=== PATIENT | female | born 1940 ===

== ENCOUNTER 2019-01-29 09:12 | Inpatient (IN) ==
[2019-01-29] MEDS ORDERED: SODIUM CHLORIDE 0.9% 1000ML 1,000 ML IV ONE (09:44)
[2019-01-29] MEDS ORDERED: NovoLIN-R INSULIN PER UNIT CHARGE IV STA ×2 (09:44→11:07)
--- NOTE | 2019-01-29 10:06 | XRay Report ---
SINGLE VIEW CHEST CLINICAL HISTORY: Generalized weakness. FINDINGS: An AP, portable, upright chest radiograph is compared to study dated 01/06/2019. The examinat ion is degraded by portable technique and patient rotation. The patient is status post midline sterno emely. The heart is top normal for projection, noting atherosclerotic calcification of the thoracic ao rta. The lungs and pleural spaces are clear. No pneumothorax is seen. The skeletal structures are ost eopenic. The bony thorax is grossly intact. Calcific tendinopathy is noted in the left shoulder. IMPRESSION: No active disease in the chest. Electronically signed by: Manuel Sheehan M.D. 01/29/2019 10:04 AM
[2019-01-29] MEDS ORDERED: ONDANSETRON INJ 2 MG/ML 2 ML VIAL IV STA (10:14)
[2019-01-29 10:26] LABS: Basophils # (auto) 0.03 K/uL (0-0.2); Basophils % (auto) 0.2 %; Eosinophils # (auto) 0.06 K/uL (0-0.5); Eosinophils % (auto) 0.4 %; Hematocrit (blood only) 36.5 % (37-47); Hemoglobin 12.4 g/dL (12.0-16.0); Immature Granulocytes # (auto) 0.03 K/uL (0.00-0.02); Immature Granulocytes % (auto) 0.2 %; Lymphocytes # (auto) 3.75 K/uL (1.2-3.4); Lymphocytes % (auto) 27.9 %; Mean Corpuscular Volume 83.9 fL (80-100); Mean Platelet Volume 10.6 fL (7.4-10.4); Monocytes # (auto) 0.79 K/uL (0.11-0.59); Monocytes % (auto) 5.9 %; Neutrophils # (auto) 8.78 K/uL (1.4-6.5); Neutrophils % (auto) 65.4 %; Platelet Count 303 K/uL (130-400); RDW Coefficient of Variation 13.5 % (11.5-14.5); RDW Standard Deviation 41.1 fL (36.4-46.3); Red Blood Count 4.35 M/uL (4.2-5.4); White Blood Count 13.44 K/uL (4.8-10.8)
[2019-01-29 10:37] LABS: Appearance Urine Turbid (Clear); Bacteria Urine Automated 3+ (Negative); Bilirubin Urine Negative (Negative); Blood Urine 1+ (Negative); Color Urine Yellow; Epithelial Cell Urine Auto >30 /lpf (0-5); Glucose Urine UA 3+ (Negative); Ketones Urine Negative (Negative); Leukocyte Esterase Urine 2+ (Negative); Nitrite Urine Negative (Negative); Protein Urine 2+ (Negative); RBC Urine Automated 0-4 /hpf (0-4); Specific Gravity Urine 1.028 (1.000-1.030); Urobilinogen Urine Negative (Negative); WBC Urine Automated >30 /hpf (0-5)
[2019-01-29 10:52] LABS: Alanine Aminotransferase 22 U/L (12-78); Albumin Globulin Ratio 0.7 (0.9-2); Albumin Level 3.6 gm/dl (3.4-5.0); Alkaline Phosphatase 90 U/L (45-117); Aspartate Aminotransferase 22 U/L (15-37); BUN Creatinine Ratio 32.3 (10-20); Bilirubin,Total 0.4 mg/dl (0.2-1); Blood Urea Nitrogen 69 mg/dl (7-18); Calcium 9.8 mg/dl (8.5-10.1); Carbon Dioxide 27 mmol/L (21-32); Chloride 95 mmol/L (98-107); Est GFR (African American) 25.1; Est GFR (Non-African American) 21.6; Globulin 5.2 gm/dl (2.5-4.0); Glucose 425 mg/dl (70-99); Magnesium 2.2 mg/dl (1.8-2.4); Sodium 133 mmol/L (136-145); Total Protein 8.8 gm/dl (6.4-8.2); Troponin I < 0.015 ng/ml (0-0.045)
[2019-01-29] MEDS ORDERED: cefTRIAXone SODIUM 1,000 MG/50 ML BAG IV STA (10:54)
[2019-01-29 11:02] LABS: Beta-Hydroxybutyrate 1.84 mg/dl (0.2-2.81)
[2019-01-29] MEDS ORDERED: SODIUM CHLORIDE 0.9% 1000ML 500 ML IV ONE (11:04)
[2019-01-29] MEDS ORDERED: INSULIN GLARGINE SOLOSTAR 100 UNITS/ML 3 ML PEN SC STA (12:04)
--- NOTE | 2019-01-29 12:18 | History & Physical Report ---
Date of Service January 29, 2019 Assessment & Plan (1) UTI (urinary tract infection): Continue Rocephin started in the ED. Await urine culture results and tailor antibiotics accordingly Present on Admission?: Yes (2) Uncontrolled type 2 diabetes mellitus: Resume Lantus twice daily dosing. IV fluids. ADA diet. Sliding scale coverage Present on Admission?: Yes (3) SYED (acute kidney injury): Administer IV fluids. Monitor intake and output. Serial lab studies Present on Admission?: Yes (4) Dementia: Provide supportive care. Haldol IM as needed agitation or aggressive behavior Present on Admission?: Yes (5) DVT prophylaxis: Heparin subcu History of Present Illness Chief Complaint: Elevated glucose, UTI, refusing medications, poor oral intake, weakness Primary Care Provider: Jaida Mcintosh 78-year-old female with dementia from a local detention who has been treated for UTI but also has diabetes and has been refusing her medications and insulin. Her oral intake is poor. She has developed weakness and was sent to the ED for evaluation. She has volume depletion with acute kidney injury and glucose greater than 500. She is not in DKA however. She has been given insulin and IV fluids and is hemodynamically stable at this time. She is alert but disoriented due to her dementia. She is in no acute distress. Caretakers are present and stated that she is a full code. She is under the care of [facility]. She is being admitted for further evaluation and treatment. Allergies Allergy/AdvReac Type Severity Reaction Status Date / Time acetaminophen [From Tylenol] AdvReac Intermediate Nose Bleed Unverified 01/29/19 10:59 Cephalosporins AdvReac Intermediate Unknown Unverified 01/29/19 10:59 iodine AdvReac Intermediate Unknown Unverified 01/29/19 10:59 levofloxacin [From Levaquin] AdvReac Intermediate Unknown Unverified 01/29/19 10:59 Penicillins AdvReac Intermediate Unknown Unverified 01/29/19 10:59 lactose AdvReac Unknown Unknown Unverified 01/29/19 10:59 seafood AdvReac Intermediate Unknown Uncoded 01/29/19 10:59 Home Medications Home Medications Medication Instructions Recorded Confirmed Type donepezil 5 mg PO HS 01/06/19 01/29/19 History glipizide 10 mg PO QAM 01/06/19 01/29/19 History insulin aspart U-100 [Novolog 16 unit SUBCUT UD 01/06/19 01/29/19 History U-100 Insulin aspart] insulin glargine [Lantus U-100 20 unit SUBCUT BID 01/06/19 01/29/19 History Insulin] metformin 500 mg PO BIDM 01/06/19 01/29/19 History metoprolol tartrate 25 mg PO QAM 01/06/19 01/29/19 History simvastatin 20 mg PO HS 01/06/19 01/29/19 History cefdinir 300 mg PO QAM 01/29/19 01/29/19 History Past Med/Surg History Medical History Dementia (Chronic) Uncontrolled type 2 diabetes mellitus (Acute) SYED (acute kidney injury) (Acute) UTI (urinary tract infection) (Acute) Dementia Alzheimer disease (Chronic) Diabetes (Chronic) Social History Feels Safe at Home: Yes Smoking Status: Former smoker Review of Systems Review of Systems: Constitutional-no fever or chills ENT-no blurred vision, no double vision, no epistaxis, no sore throat Respiratory-no cough, no wheezing, no shortness of breath Cardiac-no palpitations, no chest pain, no syncope GI-no nausea, vomiting, diarrhea, melena, hematochezia -no urinary retention, no urinary incontinence, no dysuria, no hematuria Musculoskeletal-no joint pain, no muscle tenderness Skin-no bruising, no rashes, no pruritus Neuro-no isolated weakness, no paresthesia, no weakness Psych-no depression, no anxiety Physical Exam Physical Exam: General-alert and oriented x3, no fevers, no chills HEENT-head atraumatic and normocephalic, TMs intact bilaterally, pupils equal and reactive to light, extraocular muscles intact. Dry oral mucosa noted Neck-no lymphadenopathy or thyromegaly, trachea midline Chest-clear to auscultation percussion. No rales wheezing or rhonchi Cardiac-regular rate and rhythm, normal S1 and S2, no JVD Abdomen-normal bowel sounds, nontender, no hepatosplenomegaly Extremities-no cyanosis, clubbing, or edema Neuro-cranial nerves II through XII intact, motor and sensory function within normal limits, strength symmetrical , no focal deficits Psych-baseline dementia. Oriented to name only Results & Data Vital Signs (Past 12 Hours) Vital Signs Temp Pulse Pulse Resp BP BP Pulse Ox 01/29/19 11:21 76 19 137/55 L 95 01/29/19 09:44 97 01/29/19 09:32 36.9 C 83 20 126/79 95 Laboratory Results 01/29/19 10:15 01/29/19 10:15 PG Care Time/CCT Total # of Minutes Spent Total Time Spent with Patient: Total time spent is greater than 50% in coordination of care (as documented) at patient's floor/unit and/or counseling patient: (1) UTI (urinary tract infection) Hematuria presence: without hematuria Urinary tract infection type: site unspecified Qualified Code(s): N39.0 - Urinary tract infection, site not specif ied
--- NOTE | 2019-01-29 12:57 | Emergency Department Note ---
Entered by Kirsty Palomino acting as a scribe for Manuel Rojo MD History of Present Illness General Chief complaint: Hyperglycemia Time Seen by Provider: 01/29/19 09:33 Source: EMS and other (nurse) History of Present Illness Provider complaint: hyperglycemia Onset (ago): day(s) 1 Pain Consistency: + other (episode) Quality: + other (hyperglycemia) Associated symptoms: + confusion Treatments prior to arrival: other (Lantus and Humalog) The patient is a 78 year old female with PMHx of dementia who presents to the ED with complaints of an episode of hyperglycemia that started 1 day ago. Per EMS, the patients blood sugar was 506 upon arrival. EMS stated that after treatment of Lantus and Humalog, the patients blood sugar was 560. Per nursing staff, the patient was seen by her PCP yesterday and he was concerned about DKA because her blood sugar was 1200 at that time. Per nurse, the patient had a UTI in January and was given Bactrim. HPI and ROS limited secondary to dementia. Home Medications Home Medications Medication Instructions Recorded Confirmed Type donepezil 5 mg PO 01/06/19 01/29/19 History glipizide 10 mg PO QAM 01/06/19 01/29/19 History insulin aspart U-100 [Novolog 16 unit SUBCUT UD 01/06/19 01/29/19 History U-100 Insulin aspart] insulin glargine [Lantus U-100 20 unit SUBCUT BID 01/06/19 01/29/19 History Insulin] metformin 500 mg PO BIDM 01/06/19 01/29/19 History metoprolol tartrate 25 mg PO QAM 01/06/19 01/29/19 History simvastatin 20 mg PO HS 01/06/19 01/29/19 History cefdinir 300 mg PO QAM 01/29/19 01/29/19 History Allergies Allergy/AdvReac Type Severity Reaction Status Date / Time acetaminophen [From Tylenol] AdvReac Intermediate Nose Bleed Unverified 01/29/19 10:59 Cephalosporins AdvReac Intermediate Unknown Unverified 01/29/19 10:59 iodine AdvReac Intermediate Unknown Unverified 01/29/19 10:59 levofloxacin [From Levaquin] AdvReac Intermediate Unknown Unverified 01/29/19 10:59 Penicillins AdvReac Intermediate Unknown Unverified 01/29/19 10:59 lactose AdvReac Unknown Unknown Unverified 01/29/19 10:59 seafood AdvReac Intermediate Unknown Uncoded 01/29/19 10:59 Past Med/Surg History Medical History Dementia (Chronic) Uncontrolled type 2 diabetes mellitus (Acute) SYED (acute kidney injury) (Acute) UTI (urinary tract infection) (Acute) Dementia Alzheimer disease (Chronic) Diabetes (Chronic) Social History Feels Safe at Home: Yes Smoking Status: Former smoker Review of Systems See HPI for pertinent positives & negatives. HPI and ROS limited secondary to dementia. Physical Exam Vital Signs Vital Signs - 24 hr 01/29/19 09:32 01/29/19 09:44 01/29/19 11:21 Temperature 36.9 C Temperature Source Oral Sepsis Recent Fever Within 48 Hours No Sepsis Action Taken by Nursing No Action Required Pulse Rate 83 Pulse Rate [Apical] 76 Pulse Rhythm Regular Pulse Strength Normal Respiratory Rate 20 19 Respiratory Effort / Characteristics Non-Labored Spontaneous Non-Labored Respiratory Depth Normal Normal Blood Pressure 126/79 Blood Pressure [Left Arm] 137/55 L Blood Pressure Mean 94 Blood Pressure Mean [Left Arm] 82 Blood Pressure Position Lying Pulse Oximetry 95 97 95 Oxygen Delivery Method Room Air Room Air GENERAL: Patient is in no acute distress. HEENT: No acute trauma, normocephalic atraumatic, mucous membranes moist, no nasal congestion, no scleral icterus. NECK: No stridor, no adenopathy, no meningismus, trachea is midline. LUNGS: Clear to auscultation bilaterally, no wheeze, no rhonchi, breath sounds equal. HEART: Without murmurs gallops or rubs, regular rate and rhythm. ABDOMEN: Soft, nontender, bowel sounds positive, no hernias, no peritonitis. EXTREMITIES: No cyanosis or edema, full range of motion of all the joints without pain or difficulty, no signs for acute trauma. NEUROLOGIC: Dementia noted, some confusion, moves all extremities, awake and alert. SKIN: No rash, no jaundice, no diaphoresis. Course 0935: Past medical records reviewed. The patient was evaluated in room B3. A complete history and physical exam was performed. 1109: I discussed the patient's case with Dr. Coyne- [facility] Hospitalist. He will ev aluate the patient for further management. Consultations Consultation #1: I discussed the patient's case with Dr. Coyne- [facility] Hospitalist. He will evaluate the patient for further management. Time: 11:09 Administered Medications Discontinued Medications Sodium Chloride (Nss 1000ml) 1,000 mls @ 999 mls/hr IV .Q1H1M ONE Stop: 01/29/19 10:44 Last Infusion: 01/29/19 11:30 Dose: 0 mls/hr Documented by: [id number] Admin: 01/29/19 10:22 Dose: 999 mls/hr Documented by: [id number] Ceftriaxone Sodium (Rocephin) 1,000 mg in 50 mls @ 100 mls/hr IV NOW STA Stop: 01/29/19 11:23 Last Infusion: 01/29/19 11:30 Dose: 0 mls/hr Documented by: [id number] Admin: 01/29/19 11:05 Dose: 100 mls/hr Documented by: [id number] Sodium Chloride (Nss 1000ml) 500 mls @ 999 mls/hr IV .Q31M ONE Stop: 01/29/19 11:34 Last Infusion: 01/29/19 12:05 Dose: 0 mls/hr Documented by: [id number] Admin: 01/29/19 11:07 Dose: 999 mls/hr Documented by: [id number] Insulin Glargine (Lantus Solostar Pen) 30 units SC ONCE STA Stop: 01/29/19 12:05 Last Admin: 01/29/19 12:27 Dose: 30 units Documented by: [id number] Cosigned by: [id number] Insulin Human Regular (Novolin R U-100 Per Unit) 10 units IV NOW STA Stop: 01/29/19 09:45 Last Admin: 01/29/19 10:22 Dose: 10 units Documented by: [id number] Cosigned by: [id number] Insulin Human Regular (Novolin R U-100 Per Unit) 8 units IV NOW STA Stop: 01/29/19 11:08 Last Admin: 01/29/19 11:22 Dose: 8 units Documented by: [id number] Cosigned by: [id number] Ondansetron HCl (Zofran) 4 mg IV NOW STA Stop: 01/29/19 10:15 Last Admin: 01/29/19 10:22 Dose: 4 mg Documented by: [id number] Medical Decision Making Differential Diagnosis Differentials include hyperglycemia, dehydration, UTI, renal or liver failure, DKA, electrolyte imbalance, anemia. Medical Records Attestation: I reviewed the patient's medical records. Home Medications Current Medication List: was personally reviewed by me Laboratory Data Attestation: I reviewed the patient's lab results. Result diagrams: 01/29/19 10:15 01/29/19 10:15 Lab Results 01/29/19 01/29/19 01/29/19 Range/Units 09:25 09:27 10:15 WBC 13.44 H (4.8-10.8) K/uL RBC 4.35 (4.2-5.4) M/uL Hgb 12.4 (12.0-16.0) g/dL Hct 36.5 L (37-47) % MCV 83.9 (80-100) fL MCH 28.5 (25-34) pg MCHC 34.0 (32-36) g/dL RDW Std Deviation 41.1 (36.4-46.3) fL RDW Coeff of [place] 13.5 (11.5-14.5) % Plt Count 303 (130-400) K/uL MPV 10.6 H (7.4-10.4) fL Immature Gran % (Auto) 0.2 % Neut % (Auto) 65.4 % Lymph % (Auto) 27.9 % [place] % (Auto) 5.9 % Eos % (Auto) 0.4 % Baso % (Auto) 0.2 % Immature Gran # (Auto) 0.03 H (0.00-0.02) K/uL Neut # (Auto) 8.78 H (1.4-6.5) K/uL Lymph # (Auto) 3.75 H (1.2-3.4) K/uL [place] # (Auto) 0.79 H (0.11-0.59) K/uL Eos # (Auto) 0.06 (0-0.5) K/uL Baso # (Auto) 0.03 (0-0.2) K/uL Sodium (136-145) mmol/L Potassium (3.5-5.1) mmol/L Chloride (98-107) mmol/L Carbon Dioxide (21-32) mmol/L Anion Gap (3-11) BUN (7-18) mg/dl Creatinine (0.6-1.2) mg/dl Est Cr Clr Drug Dosing ml/min Est GFR ( Amer) Est GFR (Non-Af Amer) BUN/Creatinine Ratio (10-20) Glucose (70-99) mg/dl POC Glucose 516 H* (70-99) Calcium (8.5-10.1) mg/dl Magnesium (1.8-2.4) mg/dl Total Bilirubin (0.2-1) mg/dl AST (15-37) U/L ALT (12-78) U/L Alkaline Phosphatase (45-117) U/L Troponin I (0-0.045) ng/ml Total Protein (6.4-8.2) gm/dl Albumin (3.4-5.0) gm/dl Globulin (2.5-4.0) gm/dl Albumin/Globulin Ratio (0.9-2) Beta-Hydroxybutyric Acd (0.2-2.81) mg/dl Urine Color Yellow Urine Appearance Turbid A (Clear) Urine pH 5.0 (4.5-7.5) Ur Specific [place] 1.028 (1.000-1.030) Urine Protein 2+ H (Negative) Urine Glucose (UA) 3+ H (Negative) Urine Ketones Negative (Negative) Urine Blood 1+ H (Negative) Urine Nitrite Negative (Negative) Urine Bilirubin Negative (Negative) Urine Urobilinogen Negative (Negative) Ur Leukocyte Esterase 2+ H (Negative) Urine WBC (Auto) >30 H (0-5) /hpf Urine RBC (Auto) 0-4 (0-4) /hpf U Hyaline Cast (Auto) 1-5 (0-5) /lpf U Epithel Cells (Auto) >30 H (0-5) /lpf Urine Bacteria (Auto) 3+ H (Negative) 01/29/19 01/29/19 01/29/19 Range/Units 10:15 10:41 11:16 WBC (4.8-10.8) K/uL RBC (4.2-5.4) M/uL Hgb (12.0-16.0) g/dL Hct (37-47) % MCV (80-100) fL MCH (25-34) pg MCHC (32-36) g/dL RDW Std Deviation (36.4-46.3) fL RDW Coeff of [place] (11.5-14.5) % Plt Count (130-400) K/uL MPV (7.4-10.4) fL Immature Gran % (Auto) % Neut % (Auto) % Lymph % (Auto) % [place] % (Auto) % Eos % (Auto) % Baso % (Auto) % Immature Gran # (Auto) (0.00-0.02) K/uL Neut # (Auto) (1.4-6.5) K/uL Lymph # (Auto) (1.2-3.4) K/uL [place] # (Auto) (0.11-0.59) K/uL Eos # (Auto) (0-0.5) K/uL Baso # (Auto) (0-0.2) K/uL Sodium 133 L (136-145) mmol/L Potassium 4.0 (3.5-5.1) mmol/L Chloride 95 L (98-107) mmol/L Carbon Dioxide 27 (21-32) mmol/L Anion Gap 11.0 (3-11) BUN 69 H (7-18) mg/dl Creatinine 2.13 H (0.6-1.2) mg/dl Est Cr Clr Drug Dosing 19.0 ml/min Est GFR ( Amer) 25.1 Est GFR (Non-Af Amer) 21.6 BUN/Creatinine Ratio 32.3 H (10-20) Glucose 425 H* (70-99) mg/dl POC Glucose 399 H* 335 H* (70-99) Calcium 9.8 (8.5-10.1) mg/dl Magnesium 2.2 (1.8-2.4) mg/dl Total Bilirubin 0.4 (0.2-1) mg/dl AST 22 (15-37) U/L ALT 22 (12-78) U/L Alkaline Phosphatase 90 (45-117) U/L Troponin I < 0.015 (0-0.045) ng/ml Total Protein 8.8 H (6.4-8.2) gm/dl Albumin 3.6 (3.4-5.0) gm/dl Globulin 5.2 H (2.5-4.0) gm/dl Albumin/Globulin Ratio 0.7 L (0.9-2) Beta-Hydroxybutyric Acd 1.84 (0.2-2.81) mg/dl Urine Color Urine Appearance (Clear) Urine pH (4.5-7.5) Ur Specific [place] (1.000-1.030) Urine Protein (Negative) Urine Glucose (UA) (Negative) Urine Ketones (Negative) Urine Blood (Negative) Urine Nitrite (Negative) Urine Bilirubin (Negative) Urine Urobilinogen (Negative) Ur Leukocyte Esterase (Negative) Urine WBC (Auto) (0-5) /hpf Urine RBC (Auto) (0-4) /hpf U Hyaline Cast (Auto) (0-5) /lpf U Epithel Cells (Auto) (0-5) /lpf Urine Bacteria (Auto) (Negative) Imaging Data Radiologist's Impression: Radiology results as stated below per my review and the radiologist's interpretation: SINGLE VIEW CHEST CLINICAL HISTORY: Generalized weakness. FINDINGS: An AP, portable, upright chest radiograph is compared to study dated 01/06/2019. The examination is degraded by portable technique and patient rotation. The patient is status post midline sternotomy. The heart is top normal for projection, noting atherosclerotic calcification of the thoracic aorta. The lungs and pleural spaces are clear. No pneumothorax is seen. The skeletal structures are osteopenic. The bony thorax is grossly intact. Calcific tendinopathy is noted in the left shoulder. IMPRESSION: No active disease in the chest. Electronically signed by: Manuel Sheehan M.D. 01/29/2019 10:04 AM ECG Data Attestation: I personally reviewed and interpreted this ECG as follows: Indication: other (hyperglycemia) Rate (beats per minute): 83 Rhythm: normal sinus Findings: + other (old inferior infarct, ST flattening in anterior and lateral lead); no ST elevation Comparison ECG Date: from (01/06/2019) Change: no significant change Blood Pressure Blood Pressure Findings: Elevated blood pressure Blood Pressure Disposition: further management by hospitalist [facility] Narrative There is a mild leukocytosis, this could be consistent with infection or the stress of her presentation. Renal panel testing shows acute kidney injury with a creatinine of 2.13. She is hyperglycemic with a sugar over 400. No elevation to the liver enzymes. No evidence for acidosis based on her laboratory testing. Urinalysis does suggest infection, urine culture is pending. Chest film does not show pneumonia. On exam, the patient was not toxic, she was not febrile. Patient received IV ceftriaxone as antibiotic coverage for her UTI. Based on previous cultures, this medication should be effective. She was given IV insulin, 10 units. She received a second dose of IV insulin, 8 units for a persistently higher blood sugar. She was given IV Zofran for nausea, she received 1.5 L of IV saline. The patient's blood sugar is now in the mid 300s, things are improving. She is in need of a hospital stay though. I suspect the UTI has led to her hyper glycemia and dehydration. She deserves time in the hospital for her condition. I spoke to the patient and case management. I talked with the on-call hospitalist. Impression & Plan Hyperglycemia, SYED (acute kidney injury), Dehydration, UTI (urinary tract infection), Leukocytosis Critical Care Time Critical Care Time: Yes Total Critical Care Time: 35 I have personally spent 35 minutes of critical care time in the direct management of this patient. This includes bedside care, interpretation of diagnostic studies, and testing, discussion with consultants, patient, and family members, and other required patient management activities. This 35 minutes is in excess of all separately billable procedures. Discharge Plan Visit Data *Final* Discharge Date/Time: 01/29/19 13:20 Chief Complaint: Hyperglycemia ED Provider: Manuel Rojo Discharge Problem: Hyperglycemia, SYED (acute kidney injury), Dehydration, UTI (urinary tract infection), Leukocytosis Patient Disposition: Admitted As Inpatient Discharge Instructions Interventions: ED Discharge Assessment Last Done: 01/29/19 13:20 Discharge Problem: UTI (urinary tract infection) Qualifiers: Urinary tract infection type: site unspecified Hematuria presence: without hematuria Qualified Code(s): N39.0 - Urinary tract infection, site not specified Leukocytosis Qualifiers: Leukocytosis type: unspecified Qualified Code(s): D72.829 - Elevated white bloo d cell count, unspecified The scribe's documentation has been prepared under my direction and personally reviewed by me in its entirety. I confirm that the note above accurately reflects all work, treatment, procedures, and medical decision making performed by me.
[2019-01-29] MEDS ORDERED: ALUMINUM/MAGNESIUM SUSP 30 ML UDC PO PRN (15:32)
[2019-01-29] MEDS ORDERED: ONDANSETRON INJ 2 MG/ML 2 ML VIAL IV PRN (15:32)
[2019-01-29] MEDS ORDERED: ACETAMINOPHEN 325 MG TAB PO PRN (15:32)
[2019-01-29] MEDS ORDERED: HALOPERIDOL LACTATE 5 MG/ML 1 ML VIAL IM PRN (15:32)
[2019-01-29] MEDS ORDERED: DEXTROSE 50% 50 ML SYRINGE IV PRN (16:30)
[2019-01-29] MEDS ORDERED: GLUCOSE 40% GEL 15 GM TUBE PO PRN (16:30)
[2019-01-29] MEDS ORDERED: CARBOHYDRATES FOR HYPOGLYCEMIA PO PRN (16:30)
[2019-01-29] MEDS ORDERED: GLUCAGON FOR INJ 1 MG VIAL IM PRN (16:30)
[2019-01-29] MEDS ORDERED: GLUCOSE 10 TABS/TUBE PO PRN (16:30)
[2019-01-29 16:52] LABS: Partial Thromboplastin Ratio 0.9; Partial Thromboplastin Time 24.1 Seconds (21.0-31.0); Prothrombin Time 10.3 Seconds (9.0-12.0)
[2019-01-29] MEDS: SODIUM CHLORIDE 0.9% 1000ML 1,000 ML IV SCH ×2 (17:00→23:41)
[2019-01-29] MEDS: INSULIN ASPART 100 UNITS/ML 3 ML PEN SC SCH ×2 (17:40→20:59)
[2019-01-29] MEDS: SIMVASTATIN 20 MG TAB PO SCH (20:52)
[2019-01-29] MEDS: DONEPEZIL HCL 5 MG TAB PO SCH (20:52)
[2019-01-29] MEDS: HEPARIN SOD 5,000 UNIT/0.5 ML VIAL SQ SCH (20:52)
[2019-01-29] MEDS: INSULIN GLARGINE SOLOSTAR 100 UNITS/ML 3 ML PEN SQ SCH (20:59)
[2019-01-30] MEDS: SODIUM CHLORIDE 0.9% 1000ML 1,000 ML IV SCH ×2 (07:36→16:24)
[2019-01-30] MEDS: METOPROLOL TARTRATE 25 MG TAB PO SCH (09:12)
[2019-01-30] MEDS: ASPIRIN 81 MG ECTAB PO SCH (09:12)
[2019-01-30] MEDS ORDERED: METFORMIN HCL 500 MG TAB PO STA (09:12)
[2019-01-30] MEDS: cefTRIAXone SODIUM 1,000 MG in DEXTROSE 5% 50 ML IV SCH (09:13)
[2019-01-30] MEDS ORDERED: glipiZIDE 5 MG TAB PO ONE (09:13)
[2019-01-30] MEDS: INSULIN ASPART 100 UNITS/ML 3 ML PEN SC SCH ×4 (09:40→21:30)
[2019-01-30] MEDS: INSULIN GLARGINE SOLOSTAR 100 UNITS/ML 3 ML PEN SQ SCH ×2 (09:41→21:29)
[2019-01-30] MEDS: HEPARIN SOD 5,000 UNIT/0.5 ML VIAL SQ SCH ×2 (09:41→21:25)
[2019-01-30] MEDS ORDERED: SITAGLIPTIN PHOSPHATE 25 MG TAB PO ONE (09:45)
[2019-01-30] MEDS ORDERED: LORazepam 0.5 MG TAB PO PRN (11:06)
--- NOTE | 2019-01-30 11:18 | Psychiatric Consultation ---
Date of Consultation January 30, 2019 Impression / Recommendations Impression 78-year-old female admitted medically on 01/29/19 after presenting to the ED with concern for DKA and hyperglycemia beyond usual values. Pt was found to also have UTI, dehydration, and acute kidney injury and inpatient admission was recommended. Psychiatric consultation is requested as there was suspicion of previous psychiatric history. With information currently available, the only psychiatric diagnosis is generalized anxiety disorder. It is reported the patient had previously received psychotropic medications while residing with her daughter, but these medications are unknown at this time. Contact has already been made and we are attempting to receive records regarding previous psychiatric medication history. At this time, there is no concrete evidence to suggest the presence of a primary mood or thought disorder. Most likely explanation for resistance to treatment and noncompliance is patient's dementia history. Until further history can be determined, recommend using behavioral techniques to assist with patient's treatment. Frequent re-orientation to person, place, time, and intervention will allow patient to be more aware of care recommended. Clear explanation of necessary intervention and its need at time of care will likely help with compliance. Other behavioral recommendations include permitting use of assistive hearing devices or corrective lenses, presence of familiar objects or people in room, and room lighting that mimics time of day - in order to prevent disruption of sleep/wake cycle. Pt was ordered haloperidol IM on admission, and this medication should be reserved for acute agitation or behavior with significant potential to threaten the safety of the patient or staff. Fide GORE is guardian and family preservation caseworker can be contacted for any necessary treatment decisions. We will attempt to gather collateral information, and make additional recommendations as able. Appreciate the opportunity to participate in the care of this patient. Dr. John Sy was directly involved in review and discussion of the patient's case and participated in medical decision making regarding treatment recommendations. Plan: - Requesting additional records/information regarding any previous psychiatric history - Behavioral management of confusion/noncompliance with: - clear explanation of care/procedures and the reasoning - frequent reorientation to person, place, time, and event - use of assistive devices as applicable, presence of personal comfort items in room as able - prevent disruption of sleep/wake cycle - curtains open and lights on during day; lights off at night - utilization of prn antipsychotic only if necessary for acute agitation or behavior threatening the safety of patient or staff - No indication that inpatient psychiatric treatment is appropriate, given primary diagnosis of dementia and no history of a primary psychiatric condition is known at this time - Will provide additional recommendations as able to gather collateral information or medication lists Risk Factors Assessment Do You Have Access To A Gun?: No CPT Code Initial Consultation: 46964 Psych History Identifying Data 78-year-old female admitted medically on 01/29/19 after presenting to the ED with concern for DKA and hyperglycemia beyond usual values. Pt was found to also have UTI, dehydration, and acute kidney injury and inpatient admission was recommended. Pt has a diagnosis of Alzheimer's from her half-way records, and has been refusing aspects of treatment. Psychiatric consultation was requested to evaluate for psychiatric history and assistance with medication refusal. Due to significance of dementia, history provided by the patient is limited and unreliable. Additional records from the half-way and case management have been requested. Chief Complaint "I don't know why I'm here. You'll have to talk to my daughter about that. I think she put me here." History of Present Illness Gladys Dowell is a 78-year-old female admitted medically on 01/29/19 after presenting to the ED weakness and concern for DKA due to uncontrolled T2DM. Pt has PMH of Alzheimer's, T2DM, HTN, GERD, HLD, asthma, and history of UTIs per half-way records. Pt is being treated medically for UTI, dehydration, and acute kidney injury. Although DKA was ruled out, there is concern that patient has been resistant with various aspects of her treatment - most specifically more invasive aspects of care (nasal swab, BSG checks, insulin, catheter insertion, etc). It is reported patient is under the guardianship of the [facility]. Psychiatric consultation was requested to evaluate for underlying psychiatric condition, as well as medication refusal. It was reported that the patient had been on psychiatric medications in the past, while living with her daughter, that were effective for any agitation/noncompliance related to her dementia - we are attempting to retrieve this information. Pt was seen today, and patient was agreeable to further evaluation. Pt states that she is unsure how she came to be in the hospital, believing that her daughter had something to do with her placement here. Pt is unsure of the timeline of her leaving her daughter's care and moving to the SNF. When asked where she currently resides, she states "I don't know what it's called. I call it the [facility]." When presented with the name of her SNF, she is able to recognize and confirm her current living situation. Pt is not sure of the last time she saw her daughter, but insists she does not wish to be returned to her care. Pt was reassured she is under different guardianship and that returning to her daughter is not a consideration we are making at this time. Pt was asked if there was a particular reason she was not interested in cooperating with aspects of treatment here. She does indicate that she does not like needles or care that "will hurt." Pt was reassured that, while uncomfortable, the care was important to ensuring she is healthy and can return back to her home. Otherwise, patient is a limited historian and is unable to recall pertinent mental health history. She does indicate that her mood is "much better since not living with HER." She admits to history of passive suicidal ideation in the context of her previous living situation and altercations with her daughter, but does not believe she has ever done anything to harm herself or end her life. Pt states she does not believe she has had these thoughts recently. Pt denies SI/HI, A/V hallucinations, or paranoia. Pt denies any specific needs from our service at this time. She states, at this time, that she is willing to comply with treatment, "if it doesn't hurt." Pt was reminded again that care may be uncomfortable, but would be necessary to help her feel better. She verbalized understanding. Pt states she has not done BSGs independently, and that this would not increase her comfort with the testing. Past Psychiatric History Previous Psych History: Unknown - only reported psychiatric diagnosis in half-way records is generalized anxiety disorder. Outpatient Services: Unknown Previous Psych Admissions: Unknown at this time Do You Have Access To A Gun?: No Past Medication Trials: Unknown, records requested Allergies Allergy/AdvReac Type Severity Reaction Status Date / Time acetaminophen [From Tylenol] AdvReac Intermediate Nose Bleed Unverified 01/29/19 10:59 Cephalosporins AdvReac Intermediate Unknown Unverified 01/29/19 10:59 iodine AdvReac Intermediate Unknown Unverified 01/29/19 10:59 levofloxacin [From Levaquin] AdvReac Intermediate Unknown Unverified 01/29/19 10:59 Penicillins AdvReac Intermediate Unknown Unverified 01/29/19 10:59 lactose AdvReac Unknown Unknown Unverified 01/29/19 10:59 seafood AdvReac Intermediate Unknown Uncoded 01/29/19 10:59 Home Medications Home Medications Medication Instructions Recorded Confirmed Type donepezil 5 mg PO HS 01/06/19 01/29/19 History glipizide 10 mg PO QAM 01/06/19 01/29/19 History insulin aspart U-100 [Novolog 16 unit SUBCUT UD 01/06/19 01/29/19 History U-100 Insulin aspart] insulin glargine [Lantus U-100 20 unit SUBCUT BID 01/06/19 01/29/19 History Insulin] metformin 500 mg PO BIDM 01/06/19 01/29/19 History metoprolol tartrate 25 mg PO QAM 01/06/19 01/29/19 History simvastatin 20 mg PO HS 01/06/19 01/29/19 History cefdinir 300 mg PO QAM 01/29/19 01/29/19 History Personal History Living Arrangements: Jail ([facility]) Born In: [place] Employment Status: Retired Beliefs That Will Affect Care: None Patient History Medical History Dementia (Chronic) Uncontrolled type 2 diabetes mellitus (Acute) SYED (acute kidney injury) (Acute) UTI (urinary tract infection) (Acute) Dementia Alzheimer disease (Chronic) Diabetes (Chronic) Social History Preferred Language: Egyptian Communication Ability: Effective Lobbyist Required: No Beliefs That Will Affect Care: None Current Living Situation: Jail Current Living Situation Comment: lives with daughter Other Information That Helps Us Care for You: No Feels Safe at Home: Yes Smoking Status: Unknown if ever smoked Hx Alcohol Use: No Hx Substance Use: No Physical Exam Psychiatric: Orientation: alert, oriented to person and cooperative; + not oriented to place and + not oriented to time Apperance: appropriately dressed (in hosptial gown), + disheveled (unkempt hair, slightly malodorous) and appeared stated age Eye Contact: good eye contact Motor Behavior: no abnormal motor movements (observed while laying in bed) Speech: normal rate/ rhythm/volume of speech Affect: + blunted affect (not appearing overtly depressed or anxious) Mood: no depressed mood and no anxious mood "I'm fine, my mood is better now that I'm not living with her [daughter]" Thought Process: + perseveration (on her daughter, and relationship strain) and + concrete thought process Thought Content: + preoccupation (with daughter); no hopelessness Suicidal Thoughts: denies suicidal thoughts Homicidal Thoughts: denies homicidal thoughts Hallucinations: no auditory hallucinations and no visual hallucinations Cognition: attention grossly intact and language grossly intact; + recent memory not intact and + remote memory not intact Does recall her daughter's name is Isadora, but other aspects of remote and recent memory are rather limited Estimated Intelligence: average estimated intelligence Insight: + impaired insight Judgement: + impaired judgement Vital Signs (Past 24 Hours): Last Vital Signs Temp 36.7 C 01/29/19 16:21 Pulse 80 01/29/19 16:21 Resp 18 01/29/19 16:21 BP 115/65 01/29/19 16:21 Pulse Ox 97 01/29/19 16:21 Review of Systems Constitutional: denied Cardiovascular: denied Respiratory: denied Gastrointestinal: denied Neurological: denied Psychiatric: denies symptoms other than stated above Total of at least 10 systems reviewed, pertinent positives as above and in HPI. Results & Data Medications Administered Aspirin (Ecotrin Ectab) 81 mg PO QAM [facility] Stop: 03/01/19 08:59 Last Admin: 01/30/19 09:12 Dose: 81 mg Documented by: [id number] Donepezil HCl (Aricept) 5 mg PO HS [facility] Stop: 02/28/19 20:59 Last Admin: 01/29/19 20:52 Dose: Not Given Documented by: [id number] Heparin Sodium (Porcine) (Heparin Sodium (Porcine)) 5,000 units SQ Q12 [facility] Stop: 02/28/19 20:59 Last Admin: 01/30/19 09:41 Dose: Not Given Documented by: [id number] Admin: 01/29/19 20:52 Dose: Not Given Documented by: [id number] Sodium Chloride (Nss 1000ml) 1,000 mls @ 125 mls/hr IV .Q8H [facility] Stop: 02/28/19 16:14 Last Admin: 01/30/19 07:36 Dose: 125 mls/hr Documented by: [id number] Infusion: 01/30/19 07:36 Dose: 125 mls/hr Documented by: [id number] Admin: 01/29/19 23:41 Dose: 125 mls/hr Documented by: [id number] Infusion: 01/29/19 23:41 Dose: 125 mls/hr Documented by: [id number] Admin: 01/29/19 17:00 Dose: 125 mls/hr Documented by: [id number] Ceftriaxone Sodium 1,000 mg/ (Dextrose) 60 mls @ 100 mls/hr IV DAILY@0900 [facility]; Protocol Stop: 02/04/19 08:59 Last Admin: 01/30/19 09:13 Dose: 100 mls/hr Documented by: [id number] Insulin Aspart (Novolog Flexpen) 0 units SC ACHS [facility] Stop: 02/28/19 16:29 Last Admin: 01/30/19 09:40 Dose: Not Given Documented by: [id number] Cosigned by: [id number] Admin: 01/29/19 20:59 Dose: 1 units Documented by: [id number] Cosigned by: [id number] Admin: 01/29/19 17:40 Dose: Not Given Documented by: [id number] Cosigned by: [id number] Insulin Glargine (Lantus Solostar Pen) 30 units SQ BID [facility] Stop: 02/28/19 20:59 Last Admin: 01/30/19 09:41 Dose: Not Given Documented by: [id number] Cosigned by: [id number] Admin: 01/29/19 20:59 Dose: 30 units Documented by: [id number] Cosigned by: [id number] Metoprolol Tartrate (Lopressor) 25 mg PO QAM [facility] Stop: 03/01/19 08:59 Last Admin: 01/30/19 09:12 Dose: 25 mg Documented by: [id number] Simvastatin (Zocor) 20 mg PO HS [facility] Stop: 02/28/19 20:59 Last Admin: 01/29/19 20:52 Dose: Not Given Documented by: [id number]
[2019-01-30] MEDS: CITALOPRAM 20 MG TAB PO SCH (13:02)
--- NOTE | 2019-01-30 16:38 | Hospitalist Progress Note ---
Date of Service January 30, 2019 Assessment & Plan (1) UTI (urinary tract infection): Continue Rocephin started in the ED not able to get vitals because she refuses urine culture with several arpan (2) Uncontrolled type 2 diabetes mellitus: patient will not take Lantus continue on Metformin at 500mg BID will replace Glipizide with Januvia since the renal function is unknown at this time Novolog ordered but patient refusing most recent BSG was 177 this evening so sugars are much better no signs of DKA on admission, unsure at this time since she is refusing labs (3) SYED (acute kidney injury): Cr was 2.13 on admission treating with IV fluids, likely dehydration given her hyperglycemia making adequate urine will attempt to get labs again tomorrow (4) Dementia: Provide supportive care resume Aricept 5mg HS as she was taking before (5) DVT prophylaxis: Heparin subcu (6) Generalized anxiety disorder: per records from [facility], patient was on Citalopram 20mg BID, Ativan 1mg q8 since she has not been on these medications for some time will start at a lower dose will start Ativan 0.5mg q8 and Citalopram 20mg daily could consider titrating upward in a week if she is tolerating Subjective patient refused blood draws this morning, refuses to get sugar checked, refuses insulin she agreed to take her medications patient was agitated, never go violent but was definitely opposed to any treatment called her guardian, [facility] [place] their b2b outside sales representative told me her back story she came under their guardianship because she was with family and they were not giving her her medications she is supposed to be on Ativan, Celexa and Aricept told that she is much better when taking these medications they want to try to get patient to [facility] inpatient psych but this would require a 302 because she will not go voluntarily psychiatry consulted, discussed case with them directly they are attempting to gather more information, there is no clear evidence of psychotic disorder patient has dementia and anxiety no clear indication for 302 at this time Review of Systems Review of Systems: Unobtainable due to mental health condition (patient refusing to answer questions) Physical Exam Constitutional: WD/WN, vitals as above Eyes: PERRL, conjunctivae normal, anicteric sclerae ENMT: external ear and nose normal, oropharynx normal Neck: trachea midline, no thyromegaly Respiratory: normal respiratory effort, lungs clear to auscultation Cardiovascular: RRR, no murmur, no edema Gastrointestinal (Abdomen): normal bowel sounds, soft, nontender, no hepatosplenomegaly Musculoskeletal: no cyanosis or clubbing, extremities motor strength 5/5 Skin: no rashes, warm and dry Neurologic: patellar DTR's 2+ bilat, sensation intact and PERRL, EOMI, accommodation nl, no face palsy, no dysarthria Psychiatric: Orientation: alert and oriented x 3 Affect: + anxious affect Mood: + irritable mood Results & Data Laboratory Results Laboratory Results - last 24 hr 01/29/19 01/29/19 01/29/19 10:16 16:43 20:55 PT 10.3 INR 1.0 APTT 24.1 PTT Ratio 0.9 POC Glucose 145 H 187 H 01/30/19 11:47 PT INR APTT PTT Ratio POC Glucose 150 H Microbiology 01/29/19 09:27 Urine,Indwelling Cath Urine Culture - Final More than three types of organisms present, all moderate counts mixed probable skin arpan. No further identifications or sensitivities to follow. Medications Administered Current Inpatient Medications Acetaminophen (Tylenol) 650 mg PO Q4H PRN PRN Reason: pain/fever Stop: 02/28/19 15:31 Al Hydrox/Mg Hydrox/Simethicone (Maalox) 30 ml PO Q6H PRN PRN Reason: Dyspepsia Stop: 02/28/19 15:31 Aspirin (Ecotrin Ectab) 81 mg PO QAM [facility] Stop: 03/01/19 08:59 Last Admin: 01/30/19 09:12 Dose: 81 mg Documented by: Citalopram Hydrobromide (Celexa) 20 mg PO QAM [facility] Stop: 03/01/19 11:14 Last Admin: 01/30/19 13:02 Dose: Not Given Documented by: Dextrose (Dextrose 50%) 25 - 50 ml IV UD PRN; Protocol PRN Reason: Hypoglycemia Protocol Stop: 02/28/19 16:29 Donepezil HCl (Aricept) 5 mg PO HS [facility] Stop: 02/28/19 20:59 Last Admin: 01/29/19 20:52 Dose: Not Given Documented by: Donepezil HCl (Aricept) 5 mg PO HS [facility] Stop: 03/01/19 20:59 Glucagon (Glucagen) 1 mg IM UD PRN; Protocol PRN Reason: Hypoglycemia Protocol Stop: 02/28/19 16:29 Glucose (Glucose 40%) 15 - 30 gm PO UD PRN; Protocol PRN Reason: Hypoglycemia Protocol Stop: 02/28/19 16:29 Glucose (Dex4 Glucose) 4 - 8 tabs PO UD PRN; Protocol PRN Reason: Hypoglycemia Protocol Stop: 02/28/19 16:29 Haloperidol Lactate (Haldol) 5 mg IM Q4H PRN PRN Reason: Agitation Stop: 02/28/19 15:31 Heparin Sodium (Porcine) (Heparin Sodium (Porcine)) 5,000 units SQ Q12 [facility] Stop: 02/28/19 20:59 Last Admin: 01/30/19 09:41 Dose: Not Given Documented by: Sodium Chloride (Nss 1000ml) 1,000 mls @ 125 mls/hr IV .Q8H [facility] Stop: 02/28/19 16:14 Last Admin: 01/30/19 16:24 Dose: 125 mls/hr Documented by: Ceftriaxone Sodium 1,000 mg/ (Dextrose) 60 mls @ 100 mls/hr IV DAILY@0900 [facility]; Protocol Stop: 02/04/19 08:59 Last Infusion: 01/30/19 12:06 Dose: Infused Documented by: Insulin Aspart (Novolog Flexpen) 0 units SC ACHS [facility] Stop: 02/28/19 16:29 Last Admin: 01/30/19 13:02 Dose: Not Given Documented by: Insulin Glargine (Lantus Solostar Pen) 30 units SQ BID [facility] Stop: 02/28/19 20:59 Last Admin: 01/30/19 09:41 Dose: Not Given Documented by: Lorazepam (Ativan) 0.5 mg PO Q8 PRN PRN Reason: Anxiety Stop: 03/01/19 11:05 Metformin HCl (Glucophage) 500 mg PO BIDM [facility] Stop: 03/01/19 16:59 Metoprolol Tartrate (Lopressor) 25 mg PO QAM [facility] Stop: 03/01/19 08:59 Last Admin: 01/30/19 09:12 Dose: 25 mg Documented by: Miscellaneous (Carbohydrates For Hypoglycemia) 15 - 30 gm PO UD PRN PRN Reason: Hypoglycemia Treatment Stop: 02/28/19 16:29 Ondansetron HCl (Zofran) 4 mg IV Q6H PRN PRN Reason: Nausea Stop: 02/28/19 15:31 Simvastatin (Zocor) 20 mg PO HS [facility] Stop: 02/28/19 20:59 Last Admin: 01/29/19 20:52 Dose: Not Given Documented by: Sitagliptin Phosphate (Januvia) 25 mg PO DAILY [facility] Stop: 03/02/19 08:59 PG Care Time/CCT Total # of Minutes Spent Total Time Spent with Patient: Total time spent is greater than 50% in coordination of care (as documented) at patient's floor/unit and/or counseling patient: (1) UTI (urinary tract infection) Hematuria presence: without hematuria Urinary tract infection type: site unspecified Qualified Code(s): N39.0 - Urinary tract infection, site not specified
[2019-01-30] MEDS: METFORMIN HCL 500 MG TAB PO SCH (18:04)
[2019-01-30] MEDS: SIMVASTATIN 20 MG TAB PO SCH (21:31)
[2019-01-30] MEDS: DONEPEZIL HCL 5 MG TAB PO SCH ×2 (21:31)
[2019-01-31] MEDS: SODIUM CHLORIDE 0.9% 1000ML 1,000 ML IV SCH ×4 (01:46→23:30)
[2019-01-31] MEDS: cefTRIAXone SODIUM 1,000 MG in DEXTROSE 5% 50 ML IV SCH (08:14)
[2019-01-31] MEDS: INSULIN ASPART 100 UNITS/ML 3 ML PEN SC SCH ×4 (08:14→21:31)
[2019-01-31] MEDS: ASPIRIN 81 MG ECTAB PO SCH (08:15)
[2019-01-31] MEDS: METFORMIN HCL 500 MG TAB PO SCH ×2 (08:15→17:52)
[2019-01-31] MEDS: SITAGLIPTIN PHOSPHATE 25 MG TAB PO SCH (08:15)
[2019-01-31] MEDS: CITALOPRAM 20 MG TAB PO SCH (08:15)
[2019-01-31] MEDS: METOPROLOL TARTRATE 25 MG TAB PO SCH (08:16)
[2019-01-31] MEDS: HEPARIN SOD 5,000 UNIT/0.5 ML VIAL SQ SCH ×2 (08:16→20:39)
[2019-01-31] MEDS: INSULIN GLARGINE SOLOSTAR 100 UNITS/ML 3 ML PEN SQ SCH ×2 (08:16→21:29)
[2019-01-31] MEDS: DONEPEZIL HCL 5 MG TAB PO SCH ×2 (10:06→20:39)
--- NOTE | 2019-01-31 16:10 | Hospitalist Progress Note ---
Date of Service January 31, 2019 Assessment & Plan (1) Uncontrolled type 2 diabetes mellitus: patient will not take Lantus continue on Metformin at 500mg BID will replace Glipizide with Januvia since the renal function is unknown at this time Novolog ordered but patient refusing BSG improved, most recent was < 100 on discharge should be on Metformin and Januvia, stop Glipizide (2) SYED (acute kidney injury): Cr was 2.13 on admission treated with IV fluids, likely dehydration given her hyperglycemia making adequate urine patient wanted IV pulled so now no access and no further fluids she is drinking and eating better but with diarrhea could be set up for dehydration again (3) Dementia: Provide supportive care resume Aricept 5mg HS as she was taking before has issues with memory loss but also may be behavior today she denied having diarrhea to me even though she had it an hour prior to my visit (4) Generalized anxiety disorder: per records from [facility], patient was on Citalopram 20mg BID, Ativan 1mg q8 since she has not been on these medications for some time will start at a lower dose will start Ativan 0.5mg q8 and Citalopram 20mg daily could consider titrating upward in a week if she is tolerating (5) Diarrhea: unclear etiology check C diff, several foul smelling stools today at least she will take PO medications so C diff would be treatable if that turns out to be diagnosis (6) UTI (urinary tract infection): initially suspected based on UA urine culture with several arpan, no definitive growth stop Rocephin, doubt UTI (7) DVT prophylaxis: Heparin subcu plan: go to [facility] would have gone today but she developed diarrhea, nausea and generally not feeling well concerned she would have been sent back to hospital difficult situation, patient is non-compliant with care, will refuse all needles, so no blood draws, no insulin, no IV site Subjective patient continues to be non-compliant with treatment and blood draws actually we were going to discharge to [facility] prior to release the patient developed two episodes of diarrhea and felt nauseated she told the RN she would be agreeable to lab work to help find out what was wrong when I got to the room she was feeling better she denied having diarrhea or nausea, refused labs told her that it would help me take better care of her but she still refused discharge was cancelled for today later in the day she made the RN pull her IV or she would pull it herself now refusing IV fluids she felt nauseated later and agreed to Karis AMEZCUA asked RN to check stools for C diff Review of Systems Review of Systems: Unobtainable due to mental health condition (won't answer questions, says she is fine) Physical Exam Constitutional: WD/WN, vitals as above Eyes: PERRL, conjunctivae normal, anicteric sclerae ENMT: external ear and nose normal, oropharynx normal Neck: trachea midline, no thyromegaly Respiratory: normal respiratory effort, lungs clear to auscultation Cardiovascular: RRR, no murmur, no edema Gastrointestinal (Abdomen): normal bowel sounds, soft, nontender, no hepatosplenomegaly Musculoskeletal: no cyanosis or clubbing, extremities motor strength 5/5 Skin: no rashes, warm and dry Neurologic: patellar DTR's 2+ bilat, sensation intact and PERRL, EOMI, accommodation nl, no face palsy, no dysarthria Psychiatric: Orientation: alert and oriented x 3 Affect: + anxious affect Mood: + irritable mood Lymphatic: no cervical or axillary lymphadenopathy Results & Data Vital Signs (Past 12 Hours) Vital Signs Temp Pulse Resp BP Pulse Ox 01/31/19 12:05 36.9 C 83 20 132/64 96 01/31/19 11:53 36.7 C 78 18 117/64 96 01/31/19 07:28 36.7 C 78 18 117/64 96 Diagnostic Findings Laboratory Results - last 24 hr 01/31/19 01/31/19 01/31/19 07:43 12:04 16:35 POC Glucose 242 H 135 H 96 PG Care Time/CCT Total # of Minutes Spent Total Time Spent with Patient: Total time spent is greater than 50% in co ordination of care (as documented) at patient's floor/unit and/or counseling patient: (1) UTI (urinary tract infection) Hematuria presence: without hematuria Urinary tract infection type: site unspecified Qualified Code(s): N39.0 - Urinary tract infection, site not specified
[2019-01-31] MEDS ORDERED: ONDANSETRON 4 MG OD TAB PO PRN (18:41)
[2019-01-31] MEDS: SIMVASTATIN 20 MG TAB PO SCH (20:40)
[2019-02-01] MEDS: SODIUM CHLORIDE 0.9% 1000ML 1,000 ML IV SCH (07:30)
[2019-02-01] MEDS: METFORMIN HCL 500 MG TAB PO SCH (07:30)
[2019-02-01] MEDS: CITALOPRAM 20 MG TAB PO SCH (07:31)
[2019-02-01] MEDS: SITAGLIPTIN PHOSPHATE 25 MG TAB PO SCH (07:31)
[2019-02-01] MEDS: ASPIRIN 81 MG ECTAB PO SCH (07:31)
[2019-02-01] MEDS: METOPROLOL TARTRATE 25 MG TAB PO SCH (07:31)
[2019-02-01] MEDS: INSULIN GLARGINE SOLOSTAR 100 UNITS/ML 3 ML PEN SQ SCH (07:32)
[2019-02-01] MEDS: HEPARIN SOD 5,000 UNIT/0.5 ML VIAL SQ SCH (07:33)
[2019-02-01] MEDS: INSULIN ASPART 100 UNITS/ML 3 ML PEN SC SCH ×2 (07:33→12:09)
--- NOTE | 2019-02-06 07:47 | Discharge Summary ---
Date of Service February 01, 2019 Admission HPI Per Admitting Provider Gladys Dowell is a 78-year-old female admitted medically on 01/29/19 after presenting to the ED weakness and concern for DKA due to uncontrolled T2DM. Pt has PMH of Alzheimer's, T2DM, HTN, GERD, HLD, asthma, and history of UTIs per [facility] records. Pt is being treated medically for UTI, dehydration, and acute kidney injury. Although DKA was ruled out, there is concern that patient has been resistant with various aspects of her treatment - most specifically more invasive aspects of care (nasal swab, BSG checks, insulin, catheter insertion, etc). It is reported patient is under the guardianship of the [facility]. Psychiatric consultation was requested to evaluate for underlying psychiatric condition, as well as medication refusal. It was reported that the patient had been on psychiatric medications in the past, while living with her daughter, that were effective for any agitation/noncompliance related to her dementia - we are attempting to retrieve this information. Pt was seen today, and patient was agreeable to further evaluation. Pt states that she is unsure how she came to be in the hospital, believing that her daughter had something to do with her placement here. Pt is unsure of the timeline of her leaving her daughter's care and moving to the SNF. When asked where she currently resides, she states "I don't know what it's called. I call it the [facility]." When presented with the name of her SNF, she is able to recognize and confirm her current living situation. Pt is not sure of the last time she saw her daughter, but insists she does not wish to be returned to her care. Pt was reassured she is under different guardianship and that returning to her daughter is not a consideration we are making at this time. Pt was asked if there was a particular reason she was not interested in cooperating with aspects of treatment here. She does indicate that she does not like needles or care that "will hurt." Pt was reassured that, while uncomfortable, the care was important to ensuring she is healthy and can return back to her home. Otherwise, patient is a limited historian and is unable to recall pertinent mental health history. She does indicate that her mood is "much better since not living with HER." She admits to history of passive suicidal ideation in the context of her previous living situation and altercations with her daughter, but does not believe she has ever done anything to harm herself or end her life. Pt states she does not believe she has had these thoughts recently. Pt denies SI/HI, A/V hallucinations, or paranoia. Pt denies any specific needs from our service at this time. She states, at this time, that she is willing to comply with treatment, "if it doesn't hurt." Pt was reminded again that care may be uncomfortable, but would be necessary to help her feel better. She verbalized understanding. Pt states she has not done BSGs independently, and that this would not increase her comfort with the testing. Principal Diagnosis Diabetic Ketoacidosis Uncontrolled diabetes M. Type 2. Discharge Exam Constitutional: WD/WN, vitals as above Eyes: PERRL, conjunctivae normal, anicteric sclerae ENMT: external ear and nose normal, oropharynx normal Neck: trachea midline, no thyromegaly Respiratory: normal respiratory effort, lungs clear to auscultation Cardiovascular: RRR, no murmur, no edema Gastrointestinal (Abdomen): normal bowel sounds, soft, nontender, no hepatosplenomegaly Musculoskeletal: no cyanosis of clubbing, extremities motor strength 5/5 Skin: no rashes, warm and dry Neurologic: patellar DTR's 2+ bilat, sensation intact and PERRL, EOMI, accommodation nl, no face palsy, no dysarthria Psychiatric: Orientation: alert and oriented x 3 Lymphatic: no cervical or axillary lymphadenopathy Discharge Data Allergies Allergy/AdvReac Type Severity Reaction Status Date / Time acetaminophen [From Tylenol] AdvReac Intermediate Nose Bleed Unverified 01/29/19 10:59 Cephalosporins AdvReac Intermediate Unknown Unverified 01/29/19 10:59 iodine AdvReac Intermediate Unknown Unverified 01/29/19 10:59 levofloxacin [From Levaquin] AdvReac Intermediate Unknown Unverified 01/29/19 10:59 Penicillins AdvReac Intermediate Unknown Unverified 01/29/19 10:59 lactose AdvReac Unknown Unknown Unverified 01/29/19 10:59 seafood AdvReac Intermediate Unknown Uncoded 01/29/19 10:59 Consultations 01/29/19 11:08 ED Decision to Admit Stat 01/30/19 09:22 Consult Psychiatry Routine Hospital Course (1) Uncontrolled type 2 diabetes mellitus: Given that patient is refusing futher management, patient will be discharged. She only accepts oral medicine as noted below patient will not take Lantus continue on Metformin at 500mg BID will replace Glipizide with Januvia since the renal function is unknown at this time Novolog ordered but patient refusing BSG improved, most recent was < 100 on discharge should be on Metformin and Januvia, stop Glipizide (2) SYED (acute kidney injury): Cr was 2.13 on admission treated with IV fluids, likely dehydration given her hyperglycemia making adequate urine patient wanted IV pulled so now no access and no further fluids she is drinking and eating better but with diarrhea could be set up for dehydration again (3) Dementia: Provide supportive care resume Aricept 5mg HS as she was taking before has issues with memory loss but also may be behavior today she denied having diarrhea to me even though she had it an hour prior to my visit (4) Generalized anxiety disorder: per records from [place], patient was on Citalopram 20mg BID, Ativan 1mg q8 since she has not been on these medications for some time will start at a lower dose will start Ativan 0.5mg q8 and Citalopram 20mg daily could consider titrating upward in a week if she is tolerating (5) Diarrhea: unclear etiology On day of admission, diarrhea has subsided. (6) UTI (urinary tract infection): initially suspected based on UA urine culture with several arpan, no definitive growth stop Rocephin, doubt UTI (7) DVT prophylaxis: Heparin subcu plan: go to [facility] difficult situation, patient is non-compliant with care, will refuse all needles, so no blood draws, no insulin, no IV site Total Time Total Time Spent Total Time Spent (In Minutes): 32 Total Time Includes: Examination of the Patient, Discharge Planning and Medication Reconciliation Discharge Plan Discharge Items Patient Disposition: Transfer [facility] Reason For Visit: UNCONTROLLED TYPE 2 DIABETES,UTI,ACUTE KIDNEY Discharge Diagnosis: Acute kidney injury DM type II, uncontrolled Condition: Good Discharge Goals: Improve disease control and Improve function Activity: Resume your previous activity Non-emergency contact: Primary Care Provider Call non-emergency contact if: you have any medication questions, your symptoms worsen and you have a fever Follow-up/Referrals: Jaida Mcintosh [Primary Care Provider] - Diet: Carb Consistent or DM2 Addtl Provider Instructions: Medications: - CITALOPRAM: 20mg daily for one week, then increase to 20mg twice a day - ATIVAN: 0.5mg every 8 hours as needed for anxiety, if dose is not sufficient could increase to 1mg every 8 hours, this is what she used to take - JANUVIA: 25mg daily, in one week could titrate up to 50mg daily, this is new medication Dehydration and acute kidney injury Cr elevated at 2.13 on admission, baseline for patient is 1.0-1.5 patient received IV fluids for two days, making adequate urine she absolutely refuses repeat lab work, will not cooperate thought to have a UTI but there was no growth on urine culture no fever, DM type II, poorly controlled due to non-compliance she is compliant with her Metformin and was started on Januvia stopped Glipizide due to poor renal function and concerns for hypoglycemia can titrate up on Januvia to 50mg since 25mg is just a starting dose patient will allow finger sticks but absolutely refuses Lantus because of the needles cannot reason with her H/o mood disorder, anxiety, early dementia she is calm but will not cooperate cannot reason with her to convince her to get blood draws and insulin resumed her Citalopram at 20mg daily, previously on 20mg BID after a week it would be reasonable to titrate back up to 20mg BID Ativan 0.5mg q8 PRN for anxiety or agitation Aricept 5mg HS FOLLOW UP - physician at [facility] in one week Patient does not make medical decisions, her guardian is [facility] in [place] call them at [phone] Prescriptions: New citalopram 20 mg Tablet 20 mg PO QAM 30 Days Qty: 30 RF: 0 lorazepam 0.5 mg Tablet 0.5 mg PO Q8 PRN (Reason: anxiety) 30 Days Qty: 90 RF: 0 Januvia 25 mg Tablet 25 mg PO DAILY 30 Days Qty: 30 RF: 0 Continued metformin 500 mg tablet 500 mg PO BIDM RF: 0 donepezil 5 mg tablet 5 mg PO HS RF: 0 simvastatin 20 mg tablet 20 mg PO HS RF: 0 metoprolol tartrate 25 mg tablet 25 mg PO QAM RF: 0 Discontinued Lantus U-100 Insulin 100 unit/mL solution 20 unit subcut BID RF: 0 glipizide 10 mg tablet 10 mg PO QAM RF: 0 Novolog U-100 Insulin aspart 100 unit/mL solution 16 unit subcut UD RF: 0 cefdinir 300 mg Capsule 300 mg PO QAM RF: 0 Stand-Alone Forms: [facility] Discharge Orders: Discharge Order (Routine); Ordered 02/01/19 Ordered By: Juancarlos Rios Skilled Items Patient informed of condition?: Yes DNR: Yes Discharge Level of Care: Skilled Communicable Disease: No Discharge Prognosis: Stable Admission Data Admit Date/Time: 01/29/19 12:20 Attending Provider: Juancarlos Rios Admit Provider: Nicolás Coyne Primary Care Provider: Jaida Mcintosh Other Providers: Nicolás Coyne ; Sabi Guardado Service: Medical Other Interventions: Discharge Summary Assessment (RN) Last Done: 01/31/19 11:53 Pending Studies at Discharge: No DC Date/Time DO NOT enter until pt leaves facility: 02/01/19 14:36
== END 2019-02-01 14:36 | DRG 683 ==
LOC: ED 09:12 → 2N 12:20 → SUATTDRO 12:20 → 2N 13:20
DX: F03.90 Unspecified dementia, unspecified severity, without behavioral disturbance, psychotic disturbance, mood disturbance, and anxiety; F41.1 Generalized anxiety disorder; N39.0 Urinary tract infection, site not specified; Z79.4 Long term (current) use of insulin; N17.9 Acute kidney failure, unspecified; R19.7 Diarrhea, unspecified; E11.65 Type 2 diabetes mellitus with hyperglycemia